=== PATIENT | female | born 1960 | race Caucasian/White ===

== ENCOUNTER 2016-10-09 22:37 | Emergency (ER) | payer OTHER ==
[~2016-10-09] VITALS: Ht 154.9 cm; Wt 69.7 kg
[~2016-10-09 22:37] MED LIST: ADVAIR 250/501 DISK IH; ALBUTEROL SULF8.5 GM IH; AMOXICILLIN500 M1 PO; Advair 250/50 Diskus IH; BIOTIN2500 MCG PO; CLARITIN10 M3 PO; COUMADIN,JANTO2.5 MG PO; COUMADIN2.5 MG PO; COUMADIN3 MG PO; DILAUDID4 MG PO; DOXYCYCLINE HY100 M1 PO; KEFLEX500 MG PO; LIPITOR20 MG PO; LYRICA200 MG PO; Levaquin PO; METHOTREXATE2.5 MG PO; NEURONTIN300 MG PO; NOHOMEMEDS; OXYCODONE HCL5 M1 PO; OXYCONTIN20 MG PO; PREDNISONE20 MG PO; PRILOSEC20 MG PO; SERTRALINE HCL100 MG PO; TRAZODONE PO; ULTRAM50 MG PO; VENTOLIN HFA18 GM IH; WARFARIN SODIUM2 MG PO; ZITHROMAX250 MG PO; ZOFRAN ODT4 MG PO
[2016-10-10] LABS: HEMATOCRIT 34.4 % (36.0-46.0); MCH 31.6 PG (29.0-34.0); MCHC 34.6 G/DL (30.0-36.0); MCV 91.2 FL (83-99); PLATELET COUNT 68 K/uL (156-360); RBC DIS.WIDTH-CV 16.7 % (11.8-14.6); RBC DIS.WIDTH-SD 55.5 % (39-53); RED BLOOD COUNT 3.77 M/uL (3.80-5.20); WHITE BLOOD COUNT 3.6 K/uL (4.1-10.2)
[2016-10-10 00:02] LABS: CHLORIDE 105 mEq/L (99-109); POTASSIUM 4.8 mEq/L (3.7-5.4); SODIUM 137 mEq/L (136-147)
[2016-10-10 00:04] LABS: GLUCOSE 98 mg/dL (70-99)
[2016-10-10 00:05] LABS: ANION GAP 11 MEQ/L (2-14)
[2016-10-10 00:06] LABS: TOTAL BILIRUBIN 0.6 mg/dL (0.0-1.0)
[2016-10-10 00:07] LABS: ALKALINE PHOSPHATASE 107 IU/L (3-129)
[2016-10-10 00:08] LABS: GFR ESTIMATE (CALCULATED) 55 mL/min/
[2016-10-10 00:09] LABS: UREA NITROGEN (BUN) 15 mg/dL (9-23)
[2016-10-10 00:11] LABS: LIPASE 14 U/L (1.0-51.0)
[2016-10-10] MEDS ORDERED: ZOFRAN ODT4 MG PO (02:16)
[2016-10-10] MEDS ORDERED: CIPRO500 MG PO (02:16)
[2016-10-10] MEDS ORDERED: PERCOCET 5/31 TABLET PO (02:16)
[2016-10-10] MEDS ORDERED: FLAGYL500 MG PO (02:16)
[2016-10-10 02:44] VITALS: BP 135/88
== END 2016-10-10 02:45 | disposition home or self-care (01) ==
LOC: EME 22:37
PROVIDERS: Physician Assistant
DX: K52.9 Noninfective gastroenteritis and colitis, unspecified (principal); E27.8 Other specified disorders of adrenal gland; K21.9 Gastro-esophageal reflux disease without esophagitis; F32.9 Major depressive disorder, single episode, unspecified; F17.200 Nicotine dependence, unspecified, uncomplicated; Z79.01 Long term (current) use of anticoagulants; Z86.711 Personal history of pulmonary embolism; Z86.718 Personal history of other venous thrombosis and embolism
CPT/HCPCS: 74177; 80053; 81003; 83690; 85027; 99281; 99285; J2270; J2405; J7030

== ENCOUNTER 2016-10-17 20:44 | Emergency (ER) | payer OTHER ==
[~2016-10-17] VITALS: Ht 154.9 cm; Wt 69.8 kg
[~2016-10-17 20:44] MED LIST changes: +CIPRO500 MG PO; +FLAGYL500 MG PO; +PERCOCET 5/31 TABLET PO
[2016-10-18 01:03] LABS: HEMATOCRIT 31.9 % (36.0-46.0); MCH 30.1 PG (29.0-34.0); MCHC 33.5 G/DL (30.0-36.0); MCV 89.6 FL (83-99); MEAN PLAT.VOLUME 10.2 uM^3 (9.5-12.4); PLATELET COUNT 51 K/uL (156-360); RBC DIS.WIDTH-CV 15.7 % (11.8-14.6); RED BLOOD COUNT 3.56 M/uL (3.80-5.20); WHITE BLOOD COUNT 3.1 K/uL (4.1-10.2)
[2016-10-18 01:08] LABS: PROTHROMBIN TIME 22.3 SEC (10.2-12.9)
[2016-10-18 01:27] LABS: CHLORIDE 103 mEq/L (99-109); POTASSIUM 3.5 mEq/L (3.7-5.4); SODIUM 135 mEq/L (136-147)
[2016-10-18 01:29] LABS: GLUCOSE 108 mg/dL (70-99)
[2016-10-18 01:30] LABS: ANION GAP 9 MEQ/L (2-14)
[2016-10-18 01:33] LABS: GFR ESTIMATE (CALCULATED) > 59 mL/min/
[2016-10-18 01:34] LABS: UREA NITROGEN (BUN) 14 mg/dL (9-23)
[2016-10-18] MEDS ORDERED: LOVENOX60 MG/0.6 SC (02:04)
[2016-10-18 02:48] VITALS: BP 136/85
== END 2016-10-18 02:49 | disposition home or self-care (01) ==
LOC: EME 20:44
PROVIDERS: Physician Assistant
DX: I82.612 Acute embolism and thrombosis of superficial veins of left upper extremity (principal); Z86.711 Personal history of pulmonary embolism; Z86.718 Personal history of other venous thrombosis and embolism; Z79.01 Long term (current) use of anticoagulants; F17.200 Nicotine dependence, unspecified, uncomplicated
CPT/HCPCS: 80048; 85027; 85610; 85730; 93971; 99281; 99284; J1650

== ENCOUNTER 2016-11-28 16:46 | Inpatient (IN) | payer OTHER ==
[~2016-11-28] VITALS: Ht 154.9 cm; Wt 68.0 kg
[~2016-11-28 16:46] MED LIST changes: +LOVENOX60 MG/0.6 SC
[2016-11-28 17:50] LABS: HEMATOCRIT 33.2 % (36.0-46.0); MCH 31.8 PG (29.0-34.0); MCHC 34.6 G/DL (30.0-36.0); MCV 91.7 FL (83-99); MEAN PLAT.VOLUME 11.4 uM^3 (9.5-12.4); PLATELET COUNT 113 K/uL (156-360); RBC DIS.WIDTH-CV 18.5 % (11.8-14.6); RBC DIS.WIDTH-SD 61.3 % (39-53); RED BLOOD COUNT 3.62 M/uL (3.80-5.20); WHITE BLOOD COUNT 3.2 K/uL (4.1-10.2)
[2016-11-28 18:01] LABS: CHLORIDE 102 mEq/L (99-109); POTASSIUM 3.5 mEq/L (3.7-5.4); SODIUM 138 mEq/L (136-147)
[2016-11-28 18:02] LABS: ADD MIUA? YES; BILIRUBIN NEGATIVE; BLOOD SMALL; COLOR YELLOW ((YELLOW)); GLUCOSE (STRIP) NEGATIVE; KETONES NEGATIVE; LEUKOCYTES NEGATIVE; NITRITE NEGATIVE; PROTEIN (STRIP) 30; SPECIFIC GRAVITY 1.024 (1.000-1.030); UROBILINOGEN 0.2 MG/DL (0.2-1.0)
[2016-11-28 18:03] LABS: GLUCOSE 98 mg/dL (70-99)
[2016-11-28 18:05] LABS: ANION GAP 14 MEQ/L (2-14); TOTAL BILIRUBIN 0.8 mg/dL (0.0-1.0)
[2016-11-28 18:06] LABS: BACTERIA NONE SEEN /HPF; EPITHELIAL CELLS RARE /HPF; HYALINE CASTS 0-5 /LPF; MUCUS TRACE /LPF; RED BLOOD CELLS 0-5 /HPF (0-5); UCUL ADDED? NO; WHITE BLOOD CELLS 0-5 /HPF (0-5)
[2016-11-28 18:07] LABS: ALKALINE PHOSPHATASE 96 IU/L (3-129); GFR ESTIMATE (CALCULATED) > 59 mL/min/
[2016-11-28 18:08] LABS: UREA NITROGEN (BUN) 23 mg/dL (9-23)
[2016-11-28 19:18] LABS: TROP-I INTERPRETATION NEGATIVE; TROPONIN-I < 0.01 ng/mL (0.0-0.30)
[2016-11-28 20:24] LABS: LIPASE 765 U/L (1.0-51.0)
[2016-11-28] MEDS ORDERED: LEVOFLOXACIN500 MG PO (22:10)
[2016-11-28 22:51] LABS: INTER. NORMALIZED RATIO 2.2; PROTHROMBIN TIME 24.6 SEC (10.2-12.9)
[2016-11-28 23:22] VITALS: BP 141/65
[2016-11-29 00:05] VITALS: BP 141/65
[2016-11-29 00:47] LABS: INTER. NORMALIZED RATIO 2.2; PROTHROMBIN TIME 24.8 SEC (10.2-12.9)
[2016-11-29 00:49] LABS: PTT 32.3 SEC (25-37)
[2016-11-29 01:39] LABS: TRIGLYCERIDES 107 MG/DL (Normal: <150)
[2016-11-29 04:10] VITALS: BP 148/71
[2016-11-29 05:35] LABS: EOSINOPHIL (%) 0.8 % (0-5); HEMATOCRIT 27.5 % (36.0-46.0); INSTRUMENT ABS NEUTROPHIL CT 1.9 K/uL; LYMPHOCYTE COUNT 0.5 K/uL (1.0-2.8); MCH 31.2 PG (29.0-34.0); MCHC 33.5 G/DL (30.0-36.0); MCV 93.2 FL (83-99); MEAN PLAT.VOLUME 11.4 uM^3 (9.5-12.4); MONOCYTE (%) 2.9 % (3-12); MONOCYTE COUNT 0.1 K/uL (0-0.8); NEUTROPHIL (%) 77.5 % (45-76); NEUTROPHIL COUNT 1.9 K/uL (1.8-6.4); PLATELET COUNT 96 K/uL (156-360); RBC DIS.WIDTH-CV 18.8 % (11.8-14.6); RBC DIS.WIDTH-SD 64.3 % (39-53); RED BLOOD COUNT 2.95 M/uL (3.80-5.20); WHITE BLOOD COUNT 2.4 K/uL (4.1-10.2)
[2016-11-29 08:31] VITALS: BP 131/78
[2016-11-29 09:34] LABS: ALKALINE PHOSPHATASE 76 IU/L (3-129); ANION GAP 8 MEQ/L (2-14); CHLORIDE 109 MEQ/L (99-109); GFR ESTIMATE (CALCULATED) > 59 mL/min/; GLUCOSE 81 mg/dL (70-99); POTASSIUM 3.4 MEQ/L (3.7-5.4); SAMPLE HEMOLYSIS CHECK 0; SAMPLE ICTERIC CHECK 0; SAMPLE LIPEMIA CHECK 0; SODIUM 140 MEQ/L (136-147); TOTAL BILIRUBIN 0.8 MG/DL (0.0-1.0); UREA NITROGEN (BUN) 16 mg/dL (9-23)
[2016-11-29 15:30] VITALS: BP 135/79
[2016-11-29 16:44] LABS: INTER. NORMALIZED RATIO 2.4; PROTHROMBIN TIME 27.9 SEC (10.2-12.9)
[2016-11-29 20:36] VITALS: BP 120/65
[2016-11-29 23:40] VITALS: BP 121/74
[2016-11-30 04:35] VITALS: BP 131/72
[2016-11-30 06:41] LABS: INTER. NORMALIZED RATIO 2.5; PROTHROMBIN TIME 28.3 SEC (10.2-12.9)
[2016-11-30 07:01] LABS: ANION GAP 9 MEQ/L (2-14); CHLORIDE 104 MEQ/L (99-109); GFR ESTIMATE (CALCULATED) > 59 mL/min/; GLUCOSE 58 mg/dL (70-99); LIPASE 86 U/L (1.0-51.0); POTASSIUM 3.6 MEQ/L (3.7-5.4); SAMPLE HEMOLYSIS CHECK 0; SAMPLE ICTERIC CHECK 0; SAMPLE LIPEMIA CHECK 0; SODIUM 135 MEQ/L (136-147); UREA NITROGEN (BUN) 11 mg/dL (9-23)
[2016-11-30 07:09] LABS: HEMATOCRIT 25.9 % (36.0-46.0); MCH 32.2 PG (29.0-34.0); MCHC 34.4 G/DL (30.0-36.0); MCV 93.8 FL (83-99); MEAN PLAT.VOLUME 11.6 uM^3 (9.5-12.4); PLATELET COUNT 72 K/uL (156-360); RBC DIS.WIDTH-CV 18.8 % (11.8-14.6); RBC DIS.WIDTH-SD 64.9 % (39-53); RED BLOOD COUNT 2.76 M/uL (3.80-5.20)
[2016-11-30 07:23] LABS: WHITE BLOOD COUNT 1.4 K/uL (4.1-10.2)
[2016-11-30 07:56] VITALS: BP 130/73
[2016-11-30 11:36] LABS: MAGNESIUM 1.6 mg/dl (1.3-2.7)
[2016-11-30 16:34] VITALS: BP 134/65
[2016-11-30 19:30] VITALS: BP 113/65
[2016-12-01 00:18] VITALS: BP 119/59
[2016-12-01 04:38] VITALS: BP 107/61
[2016-12-01 06:41] LABS: INTER. NORMALIZED RATIO 2.6; PROTHROMBIN TIME 29.7 SEC (10.2-12.9)
[2016-12-01 06:50] LABS: HEMATOCRIT 26.8 % (36.0-46.0); MCHC 32.8 G/DL (30.0-36.0); MCV 94.4 FL (83-99); MEAN PLAT.VOLUME 12.2 uM^3 (9.5-12.4); PLATELET COUNT 72 K/uL (156-360); RBC DIS.WIDTH-CV 19.1 % (11.8-14.6); RBC DIS.WIDTH-SD 65.1 % (39-53); RED BLOOD COUNT 2.84 M/uL (3.80-5.20)
[2016-12-01 06:58] LABS: ANION GAP 8 MEQ/L (2-14); CHLORIDE 102 MEQ/L (99-109); GFR ESTIMATE (CALCULATED) > 59 mL/min/; SAMPLE HEMOLYSIS CHECK 0; SAMPLE ICTERIC CHECK 0; SAMPLE LIPEMIA CHECK 0; SODIUM 132 MEQ/L (136-147); UREA NITROGEN (BUN) 9 mg/dL (9-23)
[2016-12-01 07:00] LABS: WHITE BLOOD COUNT 1.4 K/uL (4.1-10.2)
[2016-12-01 07:01] LABS: GLUCOSE 83 mg/dL (70-99)
[2016-12-01 07:46] VITALS: BP 133/58
[2016-12-01 10:17] LABS: LIPASE 51 U/L (1.0-51.0)
[2016-12-01 11:24] VITALS: BP 106/60
[2016-12-01 17:06] VITALS: BP 121/83
[2016-12-01 23:10] VITALS: BP 113/58
[2016-12-02 07:01] LABS: INTER. NORMALIZED RATIO 2.6; PROTHROMBIN TIME 29.8 SEC (10.2-12.9)
[2016-12-02 07:14] LABS: HEMATOCRIT 25.7 % (36.0-46.0); MCH 31.1 PG (29.0-34.0); MCHC 32.7 G/DL (30.0-36.0); MCV 95.2 FL (83-99); MEAN PLAT.VOLUME 11.7 uM^3 (9.5-12.4); PLATELET COUNT 55 K/uL (156-360); RBC DIS.WIDTH-CV 19.4 % (11.8-14.6); WHITE BLOOD COUNT 1.8 K/uL (4.1-10.2)
[2016-12-02 07:24] LABS: ANION GAP 4 MEQ/L (2-14); CHLORIDE 107 MEQ/L (99-109); GFR ESTIMATE (CALCULATED) > 59 mL/min/; GLUCOSE 103 mg/dL (70-99); POTASSIUM 4.5 MEQ/L (3.7-5.4); SAMPLE HEMOLYSIS CHECK 0; SAMPLE ICTERIC CHECK 0; SAMPLE LIPEMIA CHECK 0; SODIUM 136 MEQ/L (136-147); UREA NITROGEN (BUN) 8 mg/dL (9-23)
[2016-12-02 09:00] VITALS: BP 118/57
[2016-12-02 15:48] VITALS: BP 131/97
[2016-12-02 23:38] VITALS: BP 117/63
[2016-12-03 07:06] LABS: INTER. NORMALIZED RATIO 2.1; PROTHROMBIN TIME 23.2 SEC (10.2-12.9)
[2016-12-03 07:36] VITALS: BP 104/63
[2016-12-03 08:59] LABS: HEMATOCRIT 24.1 % (36.0-46.0); MCH 32.5 PG (29.0-34.0); MCHC 33.2 G/DL (30.0-36.0); MEAN PLAT.VOLUME 12.9 uM^3 (9.5-12.4); PLATELET COUNT 52 K/uL (156-360); RBC DIS.WIDTH-CV 19.5 % (11.8-14.6); RBC DIS.WIDTH-SD 69.5 % (39-53); RED BLOOD COUNT 2.46 M/uL (3.80-5.20); WHITE BLOOD COUNT 1.6 K/uL (4.1-10.2)
[2016-12-03 09:44] LABS: ANION GAP 6 MEQ/L (2-14); CHLORIDE 107 MEQ/L (99-109); GFR ESTIMATE (CALCULATED) > 59 mL/min/; GLUCOSE 95 mg/dL (70-99); POTASSIUM 4.2 MEQ/L (3.7-5.4); SAMPLE HEMOLYSIS CHECK 0; SAMPLE ICTERIC CHECK 0; SAMPLE LIPEMIA CHECK 0; SODIUM 138 MEQ/L (136-147); UREA NITROGEN (BUN) 9 mg/dL (9-23)
[2016-12-03 11:49] VITALS: BP 103/59
[2016-12-03] MEDS ORDERED: NICOTINE PATCH1 EAC2 TD (12:18)
[2016-12-03] MEDS ORDERED: DOCUSATE SODIU100 MG PO (12:22)
[2016-12-03] MEDS ORDERED: CREON 241 CAPSULE PO ×3 (12:23)
[2016-12-03] MEDS ORDERED: FOLIC ACID1 MG PO (12:24)
[2016-12-03] MEDS ORDERED: Vitamin B-12 PO (12:25)
[2016-12-03] MEDS ORDERED: ZOFRAN4 MG PO (20:21)
[2016-12-03] MEDS ORDERED: OXYCODONE HCL5 M1 PO (20:22)
== END 2016-12-03 13:58 | disposition home or self-care (01) | DRG 439 ==
LOC: EME 16:46 → 3EAST 22:06 → EDOF 22:06 → ENRESERV 22:11 → 3EAST 23:23
PROVIDERS: Hospitalist; Internal Medicine; Nurse Practitioner Family; Physician Assistant
DX: K86.1 Other chronic pancreatitis (principal); K85.90 Acute pancreatitis without necrosis or infection, unspecified; D68.59 Other primary thrombophilia; J44.9 Chronic obstructive pulmonary disease, unspecified; D61.818 Other pancytopenia; E87.6 Hypokalemia; F41.9 Anxiety disorder, unspecified; I73.9 Peripheral vascular disease, unspecified; M06.9 Rheumatoid arthritis, unspecified; E63.9 Nutritional deficiency, unspecified; F17.200 Nicotine dependence, unspecified, uncomplicated; K21.9 Gastro-esophageal reflux disease without esophagitis; Z68.28 Body mass index [BMI] 28.0-28.9, adult; Z86.718 Personal history of other venous thrombosis and embolism; Z79.01 Long term (current) use of anticoagulants; Z86.711 Personal history of pulmonary embolism; Z90.49 Acquired absence of other specified parts of digestive tract; Z82.49 Family history of ischemic heart disease and other diseases of the circulatory system
CPT/HCPCS: 36415; 74177; 80048; 80053; 81003; 82607; 82746; 82787 90; 83690; 83735; 84478; 84484; 85025; 85027; 85610; 85730; 87493; 99281; 99285; C9113; J1170; J2270; J2405; J3010; J3475; J3480; J7030

== ENCOUNTER 2016-12-06 09:17 | Emergency (ER) | payer OTHER ==
[~2016-12-06] VITALS: Ht 154.9 cm; Wt 66.7 kg
[~2016-12-06 09:17] MED LIST changes: +CREON 241 CAPSULE PO; +DOCUSATE SODIU100 MG PO; +FOLIC ACID1 MG PO; +LEVOFLOXACIN500 MG PO; +NICOTINE PATCH1 EAC2 TD; +Vitamin B-12 PO; +ZOFRAN4 MG PO
[2016-12-06 11:16] LABS: INTER. NORMALIZED RATIO 2.4; PROTHROMBIN TIME 27.3 SEC (10.2-12.9)
[2016-12-06 11:23] LABS: HEMATOCRIT 27.5 % (36.0-46.0); MCH 31.1 PG (29.0-34.0); MCHC 33.1 G/DL (30.0-36.0); MCV 93.9 FL (83-99); PLATELET COUNT 110 K/uL (156-360); RBC DIS.WIDTH-CV 18.4 % (11.8-14.6); RED BLOOD COUNT 2.93 M/uL (3.80-5.20)
[2016-12-06 11:24] LABS: WHITE BLOOD COUNT 1.4 K/uL (4.1-10.2)
[2016-12-06 11:26] LABS: CHLORIDE 102 mEq/L (99-109); SODIUM 135 mEq/L (136-147)
[2016-12-06 11:29] LABS: ANION GAP 10 MEQ/L (2-14)
[2016-12-06 11:30] LABS: TOTAL BILIRUBIN 0.7 mg/dL (0.0-1.0)
[2016-12-06 11:39] LABS: GLUCOSE 101 mg/dL (70-99)
[2016-12-06 11:43] LABS: ALKALINE PHOSPHATASE 70 IU/L (3-129); GFR ESTIMATE (CALCULATED) > 59 mL/min/
[2016-12-06 11:44] LABS: UREA NITROGEN (BUN) 10 mg/dL (9-23)
[2016-12-06 11:46] LABS: LIPASE 82 U/L (1.0-51.0)
[2016-12-06] MEDS ORDERED: PERCOCET 5/31 TABLET PO (13:15)
[2016-12-06 13:46] VITALS: BP 112/63
== END 2016-12-06 13:47 | disposition home or self-care (01) ==
LOC: EME 09:17
PROVIDERS: Emergency Medicine
DX: K85.90 Acute pancreatitis without necrosis or infection, unspecified (principal); G89.29 Other chronic pain; R10.13 Epigastric pain; K21.9 Gastro-esophageal reflux disease without esophagitis; J44.9 Chronic obstructive pulmonary disease, unspecified; D68.59 Other primary thrombophilia; Z86.711 Personal history of pulmonary embolism; Z86.718 Personal history of other venous thrombosis and embolism; Z79.01 Long term (current) use of anticoagulants; F41.9 Anxiety disorder, unspecified; F32.9 Major depressive disorder, single episode, unspecified; F17.200 Nicotine dependence, unspecified, uncomplicated
CPT/HCPCS: 74176; 80053; 81003; 83690; 85027; 85610; 99281; 99285; J1170; J2270; J2405; J7030; J7050

== ENCOUNTER 2017-02-19 11:31 | Emergency (ER) | payer OTHER ==
[~2017-02-19] VITALS: Ht 154.9 cm; Wt 67.2 kg
[2017-02-19 11:57] LABS: HEMATOCRIT 30.4 % (36.0-46.0); HEMOGLOBIN 9.9 G/DL (11.9-15.5); MCH 31.4 PG (29.0-34.0); MCHC 32.6 G/DL (30.0-36.0); MCV 96.5 FL (83-99); PLATELET COUNT 154 K/uL (156-360); RBC DIS.WIDTH-CV 18.3 % (11.8-14.6); RBC DIS.WIDTH-SD 65.2 % (39-53); RED BLOOD COUNT 3.15 M/uL (3.80-5.20); WHITE BLOOD COUNT 2.2 K/uL (4.1-10.2)
[2017-02-19 12:20] LABS: CHLORIDE 102 mEq/L (99-109); POTASSIUM 4.3 mEq/L (3.7-5.4); SODIUM 134 mEq/L (136-147)
[2017-02-19 12:21] LABS: TROP-I INTERPRETATION NEGATIVE; TROPONIN-I < 0.01 ng/mL (0.0-0.30)
[2017-02-19 12:22] LABS: GLUCOSE 93 mg/dL (70-99)
[2017-02-19 12:26] LABS: CREATININE 0.7 mg/dL (0.6-1.3); GFR ESTIMATE (CALCULATED) > 59 mL/min/
[2017-02-19 12:27] LABS: UREA NITROGEN (BUN) 9 mg/dL (9-23)
[2017-02-19 14:36] LABS: TROP-I INTERPRETATION NEGATIVE; TROPONIN-I < 0.01 ng/mL (0.0-0.30)
[2017-02-19] MEDS ORDERED: FLEXERIL10 MG PO (15:13)
[2017-02-19 15:38] VITALS: BP 139/78
== END 2017-02-19 15:39 | disposition home or self-care (01) ==
LOC: EME 11:31
PROVIDERS: Nurse Practitioner Family
DX: M79.662 Pain in left lower leg (principal); R07.89 Other chest pain; Z79.01 Long term (current) use of anticoagulants; Z86.718 Personal history of other venous thrombosis and embolism; Z86.711 Personal history of pulmonary embolism; J44.9 Chronic obstructive pulmonary disease, unspecified; K21.9 Gastro-esophageal reflux disease without esophagitis; F41.9 Anxiety disorder, unspecified; F32.9 Major depressive disorder, single episode, unspecified; M06.9 Rheumatoid arthritis, unspecified; F17.200 Nicotine dependence, unspecified, uncomplicated; Z88.2 Allergy status to sulfonamides
CPT/HCPCS: 71020; 80048; 84484; 85027; 85379; 85610; 93005; 93971; 99281; 99283

== ENCOUNTER 2017-07-31 13:27 | Emergency (ER) | payer OTHER ==
[~2017-07-31] VITALS: Ht 154.9 cm; Wt 60.1 kg
[~2017-07-31 13:27] MED LIST changes: +FLEXERIL10 MG PO
[2017-07-31 14:26] LABS: HEMOGLOBIN 11.3 G/DL (11.9-15.5); MCH 32.3 PG (29.0-34.0); MCHC 33.2 G/DL (30.0-36.0); MCV 97.1 FL (83-99); PLATELET COUNT 108 K/uL (156-360); RBC DIS.WIDTH-CV 15.3 % (11.8-14.6); RBC DIS.WIDTH-SD 54.4 % (39-53); WHITE BLOOD COUNT 3.1 K/uL (4.1-10.2)
[2017-07-31 14:36] LABS: ALBUMIN 3.9 g/dL (3.2-4.8); CHLORIDE 103 mEq/L (99-109); SODIUM 136 mEq/L (136-147)
[2017-07-31 14:39] LABS: GLUCOSE 113 mg/dL (70-99); TOTAL PROTEIN 7.6 g/dL (6.4-8.3)
[2017-07-31 14:41] LABS: TOTAL BILIRUBIN 0.9 mg/dL (0.0-1.0)
[2017-07-31 14:42] LABS: ALKALINE PHOSPHATASE 114 IU/L (3-129); CREATININE 0.8 mg/dL (0.6-1.3); GFR ESTIMATE (CALCULATED) > 59 mL/min/
[2017-07-31 14:43] LABS: UREA NITROGEN (BUN) 16 mg/dL (9-23)
[2017-07-31 14:44] LABS: AST (GOT) 12 IU/L (2-34)
[2017-07-31 14:45] LABS: ALT (GPT) 8 IU/L (3-49)
[2017-07-31 14:46] LABS: LIPASE 5 U/L (1.0-51.0)
[2017-07-31 16:11] LABS: TROP-I INTERPRETATION NEGATIVE; TROPONIN-I 0.06 ng/mL (0.0-0.30)
[2017-07-31 16:33] LABS: AMYLASE 28 IU/L (1-118)
[2017-07-31 17:30] LABS: APPEARANCE SL.HAZY ((CLEAR)); BILIRUBIN NEGATIVE; BLOOD NEGATIVE; COLOR YELLOW ((YELLOW)); GLUCOSE (STRIP) NEGATIVE; KETONES NEGATIVE; LEUKOCYTES MODERATE; NITRITE NEGATIVE; PROTEIN (STRIP) 100; SPECIFIC GRAVITY > 1.060 (1.000-1.030)
[2017-07-31 17:33] LABS: BACTERIA NONE SEEN /HPF; EPITHELIAL CELLS 3+ /HPF; MUCUS TRACE /LPF; RED BLOOD CELLS 0-5 /HPF (0-5); UCUL ADDED? YES
[2017-07-31 17:53] LABS: TROP-I INTERPRETATION NEGATIVE; TROPONIN-I 0.06 ng/mL (0.0-0.30)
[2017-07-31] MEDS ORDERED: ZOFRAN ODT4 MG PO (18:30)
[2017-07-31] MEDS ORDERED: BENTYL10 MG PO (18:52)
[2017-07-31 19:12] VITALS: BP 117/70
== END 2017-07-31 19:31 | disposition home or self-care (01) ==
LOC: EME 13:27
PROVIDERS: Physician Assistant Medical
DX: R10.33 Periumbilical pain (principal); R11.2 Nausea with vomiting, unspecified; K86.1 Other chronic pancreatitis; R16.1 Splenomegaly, not elsewhere classified; Z79.01 Long term (current) use of anticoagulants; Z86.711 Personal history of pulmonary embolism; K21.9 Gastro-esophageal reflux disease without esophagitis; F32.9 Major depressive disorder, single episode, unspecified; J44.9 Chronic obstructive pulmonary disease, unspecified; F41.9 Anxiety disorder, unspecified; M06.9 Rheumatoid arthritis, unspecified; Z86.718 Personal history of other venous thrombosis and embolism; Z88.2 Allergy status to sulfonamides; F17.200 Nicotine dependence, unspecified, uncomplicated
CPT/HCPCS: 74177; 80053; 81003; 82150; 83605; 83690; 84484; 85027; 87040; 87086; 93005; 99281; 99285; J1885; J2405; J7030

== ENCOUNTER 2017-08-06 19:30 | Inpatient (IN) | payer OTHER ==
[~2017-08-06] VITALS: Ht 154.9 cm; Wt 62.4 kg
[~2017-08-06 19:30] MED LIST changes: +BENTYL10 MG PO
[2017-08-06 22:01] LABS: HEMOGLOBIN 12.2 G/DL (11.9-15.5); PLATELET COUNT 80 K/uL (156-360); RBC DIS.WIDTH-CV 14.6 % (11.8-14.6); RBC DIS.WIDTH-SD 47.8 % (39-53); WHITE BLOOD COUNT 2.6 K/uL (4.1-10.2)
[2017-08-06 22:03] LABS: INTER. NORMALIZED RATIO 1.6
[2017-08-06 22:04] LABS: ALBUMIN 3.5 g/dL (3.2-4.8)
[2017-08-06 22:06] LABS: CHLORIDE 86 mEq/L (99-109); PTT 33.7 SEC (25-37); SODIUM 121 mEq/L (136-147)
[2017-08-06 22:07] LABS: GLUCOSE 101 mg/dL (70-99); TOTAL PROTEIN 6.2 g/dL (6.4-8.3)
[2017-08-06 22:08] LABS: TOTAL BILIRUBIN 0.9 mg/dL (0.0-1.0)
[2017-08-06 22:10] LABS: ALKALINE PHOSPHATASE 79 IU/L (3-129); CREATININE 0.7 mg/dL (0.6-1.3); GFR ESTIMATE (CALCULATED) > 59 mL/min/
[2017-08-06 22:11] LABS: UREA NITROGEN (BUN) 14 mg/dL (9-23)
[2017-08-06 22:12] LABS: AST (GOT) 10 IU/L (2-34)
[2017-08-06 22:13] LABS: ALT (GPT) 7 IU/L (3-49)
[2017-08-06 22:14] LABS: LIPASE 62 U/L (1.0-51.0)
[2017-08-06 22:16] LABS: TROP-I INTERPRETATION NEGATIVE; TROPONIN-I 0.03 ng/mL (0.0-0.30)
[2017-08-06 22:37] LABS: BASOPHIL (%) 0 % (0-1); EOSINOPHIL (%) 0.4 % (0-5); IMMATURE GRANULOCYTE (%) 0.4 % (0.0-0.7); LYMPHOCYTE (%) 19.5 % (15-42); LYMPHOCYTE COUNT 0.5 K/uL (1.0-2.8); MONOCYTE (%) 10.7 % (3-12); MONOCYTE COUNT 0.3 K/uL (0-0.8); NEUTROPHIL COUNT 1.8 K/uL (1.8-6.4)
[2017-08-06 22:38] LABS: MCV 89.1 FL (83-99)
[2017-08-07] MEDS ORDERED: FOLIC ACID1 MG PO (01:06)
[2017-08-07] MEDS ORDERED: VITAMIN B-12500 MC3 PO (01:07)
[2017-08-07 01:13] LABS: CHLORIDE 90 mEq/L (99-109); POTASSIUM 2.9 mEq/L (3.7-5.4); SODIUM 120 mEq/L (136-147)
[2017-08-07 01:15] LABS: GLUCOSE 107 mg/dL (70-99)
[2017-08-07 01:19] LABS: CREATININE 0.6 mg/dL (0.6-1.3); GFR ESTIMATE (CALCULATED) > 59 mL/min/; UREA NITROGEN (BUN) 13 mg/dL (9-23)
[2017-08-07 02:32] VITALS: BP 132/76
[2017-08-07 04:42] LABS: HDL CHOLESTEROL 19 MG/DL (Desirable>=50); LDL CHOLESTEROL 170 mg/dL (Desirable<100); NON-HDL CHOLESTEROL 201 mg/dL (Desirable<160); TOTAL CHOLESTEROL 220 mg/dL (Desirable<200); TRIGLYCERIDES 155 MG/DL (Normal: <150)
[2017-08-07 06:24] LABS: INTER. NORMALIZED RATIO 1.6
[2017-08-07 06:29] LABS: BASOPHIL (%) 0.6 % (0-1); EOSINOPHIL (%) 1.2 % (0-5); HEMATOCRIT 27.8 % (36.0-46.0); IMMATURE GRANULOCYTE (%) 0.6 % (0.0-0.7); LYMPHOCYTE (%) 43.9 % (15-42); LYMPHOCYTE COUNT 0.8 K/uL (1.0-2.8); MCH 31.9 PG (29.0-34.0); MCHC 35.3 G/DL (30.0-36.0); MCV 90.6 FL (83-99); MONOCYTE (%) 13.5 % (3-12); MONOCYTE COUNT 0.2 K/uL (0-0.8); NEUTROPHIL (%) 40.2 % (45-76); NEUTROPHIL COUNT 0.7 K/uL (1.8-6.4); PLATELET COUNT 79 K/uL (156-360); RBC DIS.WIDTH-CV 14.6 % (11.8-14.6); RED BLOOD COUNT 3.07 M/uL (3.80-5.20)
[2017-08-07 06:47] LABS: HEMOGLOBIN 9.8 G/DL (11.9-15.5); WHITE BLOOD COUNT 1.7 K/uL (4.1-10.2)
[2017-08-07 07:24] VITALS: BP 142/72
[2017-08-07 07:27] LABS: THYROTROPIN (TSH) 1.1 MIU/L (0.4-5.5)
[2017-08-07 07:55] LABS: MAGNESIUM 1.7 mg/dl (1.3-2.7)
[2017-08-07 09:10] LABS: APPEARANCE SL.HAZY ((CLEAR)); BILIRUBIN NEGATIVE; BLOOD NEGATIVE; COLOR YELLOW ((YELLOW)); GLUCOSE (STRIP) NEGATIVE; KETONES 5; LEUKOCYTES MODERATE; NITRITE NEGATIVE; PROTEIN (STRIP) 30; SPECIFIC GRAVITY 1.014 (1.000-1.030)
[2017-08-07 10:13] LABS: CHLORIDE 95 MEQ/L (99-109); CREATININE 0.6 MG/DL (0.6-1.3); GFR ESTIMATE (CALCULATED) > 59 mL/min/; GLUCOSE 93 mg/dL (70-99); SODIUM 123 MEQ/L (136-147); UREA NITROGEN (BUN) 10 mg/dL (9-23)
[2017-08-07 10:14] LABS: POTASSIUM 3.7 MEQ/L (3.7-5.4)
[2017-08-07 10:44] LABS: HEMOGLOBIN A1c (GLYCOHEMOGLOB) 5.1 % (Below 5.7)
[2017-08-07 10:45] LABS: UCUL ADDED? YES
[2017-08-07 10:47] LABS: RED BLOOD CELLS 0-5 /HPF (0-5)
[2017-08-07 10:48] LABS: EPITHELIAL CELLS 1+ /HPF; MUCUS RARE /LPF
[2017-08-07 10:49] LABS: BACTERIA 1+ /HPF
[2017-08-07 10:50] LABS: URIC ACID CRYSTALS RARE /HPF
[2017-08-07 12:23] VITALS: BP 99/60
[2017-08-07 14:13] LABS: URIC ACID 3.1 mg/dL (3.1-9.2)
[2017-08-07 14:32] LABS: CHLORIDE 96 MEQ/L (99-109); CREATININE 0.5 MG/DL (0.6-1.3); GFR ESTIMATE (CALCULATED) > 59 mL/min/; GLUCOSE 93 mg/dL (70-99); POTASSIUM 4.2 MEQ/L (3.7-5.4); SODIUM 121 MEQ/L (136-147); UREA NITROGEN (BUN) 10 mg/dL (9-23)
[2017-08-07 16:36] VITALS: BP 129/68
[2017-08-07 19:32] VITALS: BP 105/55
[2017-08-07 21:05] LABS: CHLORIDE 96 MEQ/L (99-109); CREATININE 0.6 MG/DL (0.6-1.3); GFR ESTIMATE (CALCULATED) > 59 mL/min/; GLUCOSE 109 mg/dL (70-99); SODIUM 123 MEQ/L (136-147); UREA NITROGEN (BUN) 9 mg/dL (9-23)
[2017-08-07 21:11] LABS: POTASSIUM 3.3 MEQ/L (3.7-5.4)
[2017-08-07 22:58] VITALS: BP 121/73
[2017-08-08 03:50] VITALS: BP 114/63
[2017-08-08 05:20] LABS: BASOPHIL (%) 0.5 % (0-1); EOSINOPHIL (%) 1.4 % (0-5); HEMATOCRIT 30.1 % (36.0-46.0); HEMOGLOBIN 10.5 G/DL (11.9-15.5); IMMATURE GRANULOCYTE (%) 0.5 % (0.0-0.7); LYMPHOCYTE (%) 29.2 % (15-42); LYMPHOCYTE COUNT 0.6 K/uL (1.0-2.8); MCH 32.2 PG (29.0-34.0); MCHC 34.9 G/DL (30.0-36.0); MCV 92.3 FL (83-99); MONOCYTE (%) 9.1 % (3-12); MONOCYTE COUNT 0.2 K/uL (0-0.8); NEUTROPHIL (%) 59.3 % (45-76); NEUTROPHIL COUNT 1.3 K/uL (1.8-6.4); PLATELET COUNT 92 K/uL (156-360); RBC DIS.WIDTH-CV 14.9 % (11.8-14.6); RBC DIS.WIDTH-SD 51.2 % (39-53); RED BLOOD COUNT 3.26 M/uL (3.80-5.20); WHITE BLOOD COUNT 2.2 K/uL (4.1-10.2)
[2017-08-08 05:40] LABS: INTER. NORMALIZED RATIO 1.5
[2017-08-08 06:06] LABS: CHLORIDE 101 MEQ/L (99-109); CREATININE 0.6 MG/DL (0.6-1.3); GFR ESTIMATE (CALCULATED) > 59 mL/min/; GLUCOSE 99 mg/dL (70-99); POTASSIUM 3.9 MEQ/L (3.7-5.4); SODIUM 129 MEQ/L (136-147); UREA NITROGEN (BUN) 6 mg/dL (9-23)
[2017-08-08 07:08] VITALS: BP 129/73
[2017-08-08 11:59] VITALS: BP 118/57
[2017-08-08 15:46] VITALS: BP 159/78
[2017-08-08 19:48] VITALS: BP 143/68
[2017-08-09] VITALS (7 sets, daily range): BP systolic 85–133; BP diastolic 52–74
[2017-08-09 05:55] LABS: BASOPHIL (%) 0 % (0-1); EOSINOPHIL (%) 0.9 % (0-5); HEMATOCRIT 29.4 % (36.0-46.0); HEMOGLOBIN 9.9 G/DL (11.9-15.5); IMMATURE GRANULOCYTE (%) 0.9 % (0.0-0.7); LYMPHOCYTE (%) 34.4 % (15-42); LYMPHOCYTE COUNT 0.8 K/uL (1.0-2.8); MCH 31.2 PG (29.0-34.0); MCHC 33.7 G/DL (30.0-36.0); MCV 92.7 FL (83-99); MONOCYTE (%) 7.1 % (3-12); MONOCYTE COUNT 0.2 K/uL (0-0.8); NEUTROPHIL (%) 56.7 % (45-76); NEUTROPHIL COUNT 1.3 K/uL (1.8-6.4); PLATELET COUNT 83 K/uL (156-360); RBC DIS.WIDTH-CV 14.7 % (11.8-14.6); RBC DIS.WIDTH-SD 50.2 % (39-53); RED BLOOD COUNT 3.17 M/uL (3.80-5.20); WHITE BLOOD COUNT 2.2 K/uL (4.1-10.2)
[2017-08-09 06:02] LABS: INTER. NORMALIZED RATIO 1.4
[2017-08-09 06:39] LABS: ALBUMIN 2.9 G/DL (3.2-4.8); ALKALINE PHOSPHATASE 51 IU/L (3-129); ALT (GPT) 3 IU/L (3-49); AST (GOT) < 7 IU/L (2-34); CHLORIDE 96 MEQ/L (99-109); CREATININE 0.7 MG/DL (0.6-1.3); GFR ESTIMATE (CALCULATED) > 59 mL/min/; GLUCOSE 109 mg/dL (70-99); POTASSIUM 3.7 MEQ/L (3.7-5.4); SODIUM 126 MEQ/L (136-147); TOTAL BILIRUBIN 0.6 MG/DL (0.0-1.0); UREA NITROGEN (BUN) 8 mg/dL (9-23)
[2017-08-09 07:53] LABS: THYROTROPIN (TSH) 1.5 MIU/L (0.4-5.5)
[2017-08-09 08:03] LABS: FOLIC ACID (FOLATE) 12.9 NG/ML (5.0-22.0)
[2017-08-10] VITALS: BP 105/58
== END 2017-08-10 01:47 | disposition short-term general hospital (02) | DRG 64 ==
LOC: EME 19:30 → EDOF 08-07 01:04 → 5SOUTH 08-07 01:04 → ENRESERV 08-07 01:11 → 5SOUTH 08-07 02:18
PROVIDERS: Anesthesiology; Emergency Medicine; Hospitalist; Internal Medicine Nephrology
DX: I60.2 Nontraumatic subarachnoid hemorrhage from anterior communicating artery (principal); E22.2 Syndrome of inappropriate secretion of antidiuretic hormone; G93.41 Metabolic encephalopathy; E46 Unspecified protein-calorie malnutrition; D61.818 Other pancytopenia; E86.1 Hypovolemia; E86.0 Dehydration; E87.6 Hypokalemia; K21.9 Gastro-esophageal reflux disease without esophagitis; F32.9 Major depressive disorder, single episode, unspecified; G43.909 Migraine, unspecified, not intractable, without status migrainosus; F41.9 Anxiety disorder, unspecified; M06.9 Rheumatoid arthritis, unspecified; G89.29 Other chronic pain; K86.1 Other chronic pancreatitis; D68.59 Other primary thrombophilia; J44.9 Chronic obstructive pulmonary disease, unspecified; I73.9 Peripheral vascular disease, unspecified; E53.8 Deficiency of other specified B group vitamins; F17.200 Nicotine dependence, unspecified, uncomplicated; Z88.2 Allergy status to sulfonamides; Z86.711 Personal history of pulmonary embolism; Z79.01 Long term (current) use of anticoagulants; Z89.422 Acquired absence of other left toe(s); Z86.718 Personal history of other venous thrombosis and embolism
CPT/HCPCS: 70450; 70544; 70551; 71046; 80048; 80048 91; 80053; 80061; 81003; 82436; 82607; 82746; 82948; 83036; 83690; 83735; 83930; 83935; 84133; 84295; 84300; 84443; 84484; 84550; 85025; 85610; 85730; 87040; 87086; 93005; 99281; 99285; C9113; J0696; J2405; J3475; J3480; J7030

== ENCOUNTER 2017-10-03 19:39 | Inpatient (IN) | payer OTHER ==
[~2017-10-03] VITALS: Ht 154.9 cm; Wt 112.7 kg
[~2017-10-03 19:39] MED LIST changes: -LYRICA200 MG PO; +LYRICA300 MG PO; +VITAMIN B-12500 MC3 PO
[2017-10-03 20:03] LABS: BASOPHIL (%) 0.2 % (0-1); EOSINOPHIL (%) 0.2 % (0-5); HEMATOCRIT 27.3 % (36.0-46.0); HEMOGLOBIN 8.7 G/DL (11.9-15.5); IMMATURE GRANULOCYTE (%) 0.6 % (0.0-0.7); LYMPHOCYTE (%) 27.4 % (15-42); LYMPHOCYTE COUNT 1.4 K/uL (1.0-2.8); MCH 28.8 PG (29.0-34.0); MCHC 31.9 G/DL (30.0-36.0); MCV 90.4 FL (83-99); MONOCYTE (%) 6.5 % (3-12); MONOCYTE COUNT 0.3 K/uL (0-0.8); NEUTROPHIL (%) 65.1 % (45-76); NEUTROPHIL COUNT 3.3 K/uL (1.8-6.4); PLATELET COUNT 159 K/uL (156-360); RBC DIS.WIDTH-CV 16.7 % (11.8-14.6); RBC DIS.WIDTH-SD 55.7 % (39-53); RED BLOOD COUNT 3.02 M/uL (3.80-5.20)
[2017-10-03 20:08] LABS: INTER. NORMALIZED RATIO 3.6
[2017-10-03 20:23] LABS: ALBUMIN 3.3 G/DL (3.2-4.8); CHLORIDE 103 MEQ/L (99-109); DIRECT BILIRUBIN 0.1 mg/dL (0.0-0.3); MAGNESIUM 1.6 mg/dl (1.3-2.7); POTASSIUM 3.7 MEQ/L (3.7-5.4); SODIUM 135 MEQ/L (136-147); TOTAL BILIRUBIN 0.4 MG/DL (0.0-1.0)
[2017-10-03 20:25] LABS: TROP-I INTERPRETATION NEGATIVE; TROPONIN-I 0.01 ng/mL (0.0-0.30)
[2017-10-03 20:29] LABS: ALKALINE PHOSPHATASE 113 IU/L (3-129); ALT (GPT) 5 IU/L (3-49); AST (GOT) 7 IU/L (2-34); CREATININE 0.7 MG/DL (0.6-1.3); GFR ESTIMATE (CALCULATED) > 59 mL/min/; GLUCOSE 115 mg/dL (70-99); LIPASE 30 U/L (1.0-51.0); TOTAL PROTEIN 7.5 G/DL (6.4-8.3); UREA NITROGEN (BUN) 15 mg/dL (9-23)
[2017-10-03] MEDS ORDERED: LIPITOR80 MG PO (23:31)
[2017-10-03] MEDS ORDERED: COUMADIN1 MG PO (23:31)
[2017-10-03] MEDS ORDERED: LO-DOSE ASPIRIN81 M1 PO (23:32)
[2017-10-03] MEDS ORDERED: FOLIC ACID1 MG PO (23:32)
[2017-10-03] MEDS ORDERED: LISINOPRIL2.5 MG PO (23:32)
[2017-10-03] MEDS ORDERED: PRILOSEC20 MG PO (23:32)
[2017-10-04 03:14] VITALS: BP 149/76
[2017-10-04 03:23] LABS: TROP-I INTERPRETATION NEGATIVE; TROPONIN-I < 0.01 ng/mL (0.0-0.30)
[2017-10-04 06:59] LABS: APPEARANCE CLEAR ((CLEAR)); BILIRUBIN NEGATIVE; BLOOD SMALL; COLOR YELLOW ((YELLOW)); GLUCOSE (STRIP) NEGATIVE; KETONES NEGATIVE; LEUKOCYTES NEGATIVE; NITRITE NEGATIVE; PROTEIN (STRIP) NEGATIVE; SPECIFIC GRAVITY 1.032 (1.000-1.030)
[2017-10-04 07:29] LABS: BACTERIA NONE SEEN /HPF; EPITHELIAL CELLS RARE /HPF; MUCUS NONE SEEN /LPF; RED BLOOD CELLS 15-20 /HPF (0-5); UCUL ADDED? NO; WHITE BLOOD CELLS 0-5 /HPF (0-5)
[2017-10-04 08:28] VITALS: BP 161/78
[2017-10-04 08:56] LABS: INTER. NORMALIZED RATIO 3.3
[2017-10-04 08:59] LABS: HEMATOCRIT 23.2 % (36.0-46.0); HEMOGLOBIN 7.1 G/DL (11.9-15.5); MCH 28.3 PG (29.0-34.0); MCHC 30.6 G/DL (30.0-36.0); MCV 92.4 FL (83-99); RBC DIS.WIDTH-CV 16.7 % (11.8-14.6); RBC DIS.WIDTH-SD 57.1 % (39-53); RED BLOOD COUNT 2.51 M/uL (3.80-5.20); WHITE BLOOD COUNT 3.8 K/uL (4.1-10.2)
[2017-10-04 09:13] LABS: TROP-I INTERPRETATION NEGATIVE; TROPONIN-I 0.01 ng/mL (0.0-0.30)
[2017-10-04 09:18] LABS: PLAT.SUFFICIENCY DECREASED; PLATELET COUNT 109 K/uL (156-360)
[2017-10-04 10:13] LABS: CHLORIDE 106 MEQ/L (99-109); CREATININE 0.6 MG/DL (0.6-1.3); GFR ESTIMATE (CALCULATED) > 59 mL/min/; GLUCOSE 112 mg/dL (70-99); POTASSIUM 3.6 MEQ/L (3.7-5.4); SODIUM 138 MEQ/L (136-147); UREA NITROGEN (BUN) 13 mg/dL (9-23)
[2017-10-04 11:30] VITALS: BP 98/56
[2017-10-04 12:14] LABS: HEMATOCRIT 24.8 % (36.0-46.0); HEMOGLOBIN 7.7 G/DL (11.9-15.5); MCV 92.5 FL (83-99)
[2017-10-04 15:55] VITALS: BP 114/61
[2017-10-04 18:22] LABS: HEMATOCRIT 24.3 % (36.0-46.0); HEMOGLOBIN 7.5 G/DL (11.9-15.5); MCV 93.1 FL (83-99)
[2017-10-04 20:30] VITALS: BP 89/50
[2017-10-04 23:57] VITALS: BP 116/75
[2017-10-05 04:05] VITALS: BP 117/72
[2017-10-05 05:49] LABS: INTER. NORMALIZED RATIO 2.6
[2017-10-05 06:01] LABS: HEMATOCRIT 24.8 % (36.0-46.0); HEMOGLOBIN 7.7 G/DL (11.9-15.5); MCH 28.7 PG (29.0-34.0); MCV 92.5 FL (83-99); PLATELET COUNT 121 K/uL (156-360); RBC DIS.WIDTH-CV 16.4 % (11.8-14.6); RBC DIS.WIDTH-SD 55.7 % (39-53); RED BLOOD COUNT 2.68 M/uL (3.80-5.20); WHITE BLOOD COUNT 3.3 K/uL (4.1-10.2)
[2017-10-05 06:22] LABS: CHLORIDE 109 MEQ/L (99-109); CREATININE 0.5 MG/DL (0.6-1.3); GFR ESTIMATE (CALCULATED) > 59 mL/min/; GLUCOSE 150 mg/dL (70-99); POTASSIUM 4.3 MEQ/L (3.7-5.4); SODIUM 141 MEQ/L (136-147); UREA NITROGEN (BUN) 17 mg/dL (9-23)
[2017-10-05 06:51] LABS: IRON 10 MCG/DL (35-150); TRANSFERRIN (TIBC) 184.8 mg/dL (215-380); TRANSFERRIN SATUR. 5 % (20-55)
[2017-10-05 08:13] VITALS: BP 107/62
[2017-10-05 08:13] LABS: FOLIC ACID (FOLATE) > 22.0 NG/ML (5.0-22.0)
[2017-10-05 10:27] LABS: FERRITIN 252 NG/ML (10-291)
[2017-10-05 15:46] VITALS: BP 99/57
[2017-10-05 20:28] VITALS: BP 103/57
[2017-10-06 00:23] VITALS: BP 111/65
[2017-10-06 05:37] LABS: INTER. NORMALIZED RATIO 2.4
[2017-10-06 07:51] VITALS: BP 101/76
[2017-10-06 11:39] VITALS: BP 141/68
[2017-10-06 14:06] LABS: ABSOLUTE RETICULOCYTE CT. 0.04 M/uL (0.02-0.08); BASOPHIL (%) 0 % (0-1); EOSINOPHIL (%) 0 % (0-5); HEMATOCRIT 27.1 % (36.0-46.0); HEMOGLOBIN 8.1 G/DL (11.9-15.5); IMM.RETIC FRACTION 17.3 % (3-19); IMMATURE GRANULOCYTE (%) 0.6 % (0.0-0.7); LYMPHOCYTE (%) 10.6 % (15-42); LYMPHOCYTE COUNT 0.5 K/uL (1.0-2.8); MCH 28.4 PG (29.0-34.0); MCHC 29.9 G/DL (30.0-36.0); MCV 95.1 FL (83-99); MONOCYTE (%) 4.3 % (3-12); MONOCYTE COUNT 0.2 K/uL (0-0.8); NEUTROPHIL (%) 84.5 % (45-76); NEUTROPHIL COUNT 3.9 K/uL (1.8-6.4); PLATELET COUNT 138 K/uL (156-360); RBC DIS.WIDTH-CV 17.2 % (11.8-14.6); RBC DIS.WIDTH-SD 59.6 % (39-53); RED BLOOD COUNT 2.85 M/uL (3.80-5.20); RETIC HGB EQUIVALENT 19.6 (28-36); RETICULOCYTE COUNT 1.4 % (0.5-1.8); WHITE BLOOD COUNT 4.6 K/uL (4.1-10.2)
[2017-10-06 16:15] VITALS: BP 137/68
[2017-10-06 19:57] VITALS: BP 118/62
[2017-10-06 23:13] VITALS: BP 104/65
[2017-10-07 04:26] VITALS: BP 132/66
[2017-10-07 05:33] LABS: INTER. NORMALIZED RATIO 2.8
[2017-10-07 07:00] VITALS: BP 129/78
[2017-10-07 07:33] LABS: HEMATOCRIT 27.3 % (36.0-46.0); HEMOGLOBIN 8.3 G/DL (11.9-15.5); MCH 28.1 PG (29.0-34.0); MCHC 30.4 G/DL (30.0-36.0); MCV 92.5 FL (83-99); PLATELET COUNT 142 K/uL (156-360); RBC DIS.WIDTH-SD 57.9 % (39-53); RED BLOOD COUNT 2.95 M/uL (3.80-5.20); WHITE BLOOD COUNT 3.4 K/uL (4.1-10.2)
[2017-10-07 07:56] LABS: CHLORIDE 108 MEQ/L (99-109); CREATININE 0.7 MG/DL (0.6-1.3); GFR ESTIMATE (CALCULATED) > 59 mL/min/; POTASSIUM 3.9 MEQ/L (3.7-5.4); SODIUM 140 MEQ/L (136-147); UREA NITROGEN (BUN) 22 mg/dL (9-23)
[2017-10-07 08:10] LABS: GLUCOSE 99 mg/dL (70-99)
[2017-10-07] MEDS ORDERED: AMOX TR-K CLV1 EAC4 PO (11:19)
[2017-10-07] MEDS ORDERED: CYANOCOBAL1000 MCG/2 SC (11:20)
[2017-10-07] MEDS ORDERED: MUCINEX600 MG PO (11:20)
[2017-10-07] MEDS ORDERED: NITROSTAT0.4 MG SL (11:20)
[2017-10-07] MEDS ORDERED: ALBUTEROL2.5 MG/0.5 AEROSOL (11:21)
[2017-10-07] MEDS ORDERED: PREDNISONE10 MG PO (11:21)
[2017-10-07 12:14] VITALS: BP 126/69
== END 2017-10-07 14:50 | disposition home or self-care (01) | DRG 193 ==
LOC: EME → EDSEX 19:39 → EDBD 19:39 → EDOF 10-04 01:24 → ENRESERV 10-04 01:25 → 4SOUTH 10-04 02:57
PROVIDERS: Emergency Medicine; Hospitalist; Internal Medicine; Physician Assistant Medical
DX: J18.9 Pneumonia, unspecified organism (principal); G93.41 Metabolic encephalopathy; E87.1 Hypo-osmolality and hyponatremia; J98.11 Atelectasis; J90 Pleural effusion, not elsewhere classified; J44.1 Chronic obstructive pulmonary disease with (acute) exacerbation; J44.0 Chronic obstructive pulmonary disease with (acute) lower respiratory infection; K86.1 Other chronic pancreatitis; D61.818 Other pancytopenia; D68.59 Other primary thrombophilia; F33.9 Major depressive disorder, recurrent, unspecified; F41.9 Anxiety disorder, unspecified; F17.210 Nicotine dependence, cigarettes, uncomplicated; E87.6 Hypokalemia; E78.5 Hyperlipidemia, unspecified; K21.9 Gastro-esophageal reflux disease without esophagitis; M06.9 Rheumatoid arthritis, unspecified; E53.8 Deficiency of other specified B group vitamins; G62.9 Polyneuropathy, unspecified; E27.9 Disorder of adrenal gland, unspecified; G89.29 Other chronic pain; Z89.422 Acquired absence of other left toe(s); Z86.711 Personal history of pulmonary embolism; Z86.718 Personal history of other venous thrombosis and embolism; I69.192 Facial weakness following nontraumatic intracerebral hemorrhage; Z79.01 Long term (current) use of anticoagulants; I25.2 Old myocardial infarction; Z88.2 Allergy status to sulfonamides; Z80.7 Family history of other malignant neoplasms of lymphoid, hematopoietic and related tissues; Z82.49 Family history of ischemic heart disease and other diseases of the circulatory system
CPT/HCPCS: 71045; 71046; 71275; 80048; 80076; 81003; 82607; 82728; 82746; 83540; 83605; 83690; 83735; 83880; 84466; 84484; 85014; 85018; 85025; 85027; 85046; 85610; 86850; 86900; 86901; 87040; 87449; 93005; 93970; 94640; 94760; 94799; 99281; 99285; J0295; J0456; J1956; J2270; J2920; J3010; J3420; J7050; J7512; J8610